=== PATIENT | female | born 1965 | race Hispanic/Latino ===

== ENCOUNTER 2022-11-27 13:26 | Emergency (ER) | payer OTHER ==
[~2022-11-27] VITALS: Ht 157.5 cm; Wt 67.1 kg
[2022-11-27] MEDS ORDERED: VALTREX1000 MG PO (18:28)
[2022-11-27] MEDS ORDERED: PREDNISONE5 MG PO (18:28)
[2022-11-27] MEDS ORDERED: ARTIFICIAL TEAR15 ML OU (18:28)
[2022-11-27] MEDS ORDERED: PREDNISONE20 MG PO (18:28)
[2022-11-27 18:39] VITALS: BP 140/72
== END 2022-11-27 18:44 | disposition home or self-care (01) ==
LOC: FSED 13:36
DX: G51.0 Bell's palsy (principal); R07.9 Chest pain, unspecified; I10 Essential (primary) hypertension; E11.9 Type 2 diabetes mellitus without complications
CPT/HCPCS: 70450; 71045; 80053; 82553; 83880; 84484; 85025; 93005; 99284